=== PATIENT | male | born 1935 | race Caucasian/White ===

== ENCOUNTER 2018-12-25 16:22 | Inpatient (IN) ==
[2018-12-25 19:40] LABS: BASO% 0.6 % (0.0-0.8); EOS# 0.14 X1000 (0.0-0.7); EOS% 0.9 % (0.0-10.0); HEMATOCRIT 37.4 % (42.0-52.0); HEMOGLOBIN 12.5 g/dL (14.0-18.0); IMM GRAN# 0.08 X1000 (0.0-0.04); IMM GRAN% 0.5 % (0.0-0.5); LYMPH# 3.72 X1000 (1.2-3.4); LYMPH% 22.9 % (20.5-51.1); MCH 30.6 PG (27-31); MCHC 33.4 g/dL (33-37); MCV 91.4 FL (81-99); MONO% 7.4 % (1.7-9.3); MPV 10.5 FL (7.4-10.4); NEUT# 11.01 X1000 (1.4-6.5); NEUT% 67.7 % (42.2-75.2); PLT 322 X1000 (130-400); RBC 4.09 XMIL (4.7-6.1); WBC 16.25 X1000 (4.8-10.8)
[2018-12-25 20:00] LABS: INR 1.07; PROTIME 14.5 Seconds (11.0-16.0)
[2018-12-25 20:01] LABS: PTT 30.7 Seconds (22.3-41.8)
[2018-12-25 20:08] LABS: ALBUMIN 4.4 g/dL (3.5-5.0); CALCIUM 10.2 mg/dL (8.8-10.2); CREATININE 1.9 mg/dL (0.7-1.2); POTASSIUM 4.7 mmol/L (3.5-5.1); TOTAL BILIRUBIN 0.4 mg/dL (0.20-1.00); TOTAL PROTEIN 7.2 g/dL (6.3-8.3)
[2018-12-25 21:15] LABS: OCCULT BLOOD 1 POSITIVE (NEGATIVE)
[2018-12-25] MEDS ORDERED: NS 1,000 ML IV ONE (21:21)
[2018-12-25 21:23] LABS: BILIRUBIN URINE NEGATIVE (NEGATIVE); BLOOD URINE NEGATIVE (NEGATIVE); GLUCOSE URINE NEGATIVE (NEGATIVE); KETONE URINE TRACE mg/dL (NEGATIVE); LEUKOCYTES URINE NEGATIVE (NEGATIVE); NITRITE URINE NEGATIVE (NEGATIVE); PROTEIN URINE 1+(30 mg/dL) mg/dL (NEGATIVE); SP GRAVITY URINE 1.015; UROBILINOGEN URINE NORMAL
[2018-12-25 21:24] LABS: CLARITY CLEAR (CLEAR); COLOR YELLOW
[2018-12-25] MEDS ORDERED: SODIUM CHLORIDE 0.9% INJ ONE (21:41)
[2018-12-25] MEDS: PROTONIX IV ONE ×2 (21:41→22:15)
[2018-12-25 22:10] LABS: URINE SOURCE CLEAN CATCH
[2018-12-25 22:12] LABS: URINE BACTERIA NEGATIVE /HFP; URINE CAST NONE SEEN /LPF; URINE CRYSTAL NONE SEEN /HPF; URINE EPITHELIAL CELLS <10 /HPF (<10); URINE RBC <10 /HPF (<10); URINE WBC <10 /HPF (<10); URINE YEAST NONE SEEN /HPF
[2018-12-25 22:13] LABS: URINE SMALL ROUND CELLS TRANSITIONAL PRESENT
--- NOTE | 2018-12-25 22:18 | PROVIDER DOCUMENTATION ---
This chart was entered by Samia Grimes Scribe, acting as scribe for Cb Chavarria MD. HPI-Abdominal Pain/GI Problem - General Chief Complaint: Rectal Bleeding Stated Complaint: BLOOD IN STOOL Time Seen by Provider: 12/25/18 16:26 Source: patient Allergies/Adverse Reactions: Patient Allergies Allergy/AdvReac Type Severity Reaction Status Date / Time No Known Allergies Allergy Verified 12/25/18 16:35 Home Medications: Home Medication List Medication Instructions Recorded Confirmed Last Taken Type Aspirin 325 mg PO 12/25/18 Unknown History Clonidine [Catapres] 0.1 mg PO BID 12/25/18 12/25/18 Unknown History Clopidogrel Bisulfate [Plavix] 75 mg PO 12/25/18 Unknown History Furosemide [Lasix] 12/25/18 Unknown History Linagliptin [Tradjenta] 12/25/18 12/25/18 Unknown History Metformin E.r. [Glucophage Xr] 12/25/18 Unknown History Metoprolol Succinate E.r. [Toprol 100 mg PO DAILY 12/25/18 12/25/18 Unknown History Xl] Nitroglycerin [Nitrostat] 12/25/18 Unknown History Potassium Chloride [Klor-Con M10] 12/25/18 Unknown History ROSUVAstatin [Crestor] 12/25/18 Unknown History Valsartan 12/25/18 12/25/18 Unknown History - History of Present Illness-ABD Nature of Presenting Problems: 83 yowm c/o black stool tuesday and diarrhea today. pt sts took 2 imodiums at 1430. pt sts he is a little lightheaded but had no other complaints. pt has hx of dm, htn, RI and 2 stents. pt last colonoscopy was 2 years ago w/Dr. Payne. Onset/Duration: reports: 4 days ago Timing: reports: gone now Activities at Onset: reports: none Last BM: this afternoon Dark Stools Present?: reports: black Rectal Pain: reports: none Review of Systems - Adult - REVIEW OF SYSTEMS - ADULT Constitutional: reports: no symptoms reported. denies: fever, fatique, night sweats Eyes: reports: no symptoms reported Ears, Nose, Mouth & Throat: reports: no symptoms reported Cardiovascular: reports: no symptoms reported Respiratory: reports: no symptoms reported Gastrointestinal: reports: see HPI, diarrhea, rectal bleeding (black BM tuesday). denies: abdominal pain, hematemesis, nausea Genitourinary: reports: no symptoms reported Musculoskeletal: reports: no symptoms reported Integumentary: reports: no symptoms reported Neurological: reports: see HPI, other (lightheaded minimal). denies: dizziness/vertigo, headache/migraines, seizure, slurred speech Psychiatric: reports: no symptoms reported Endocrine: reports: no symptoms reported Hematologic/Lymphatic: reports: no symptoms reported Allergic/Immunologic: reports: no symptoms reported All Other Systems: Reviewed and Negative Past History - Adult - PAST MEDICAL HISTORY-ADULT Review of Records: reports: Nursing Assessment Review, Medications Reviewed, S ocial history reviewed & non-contributory. Major Childhood Illnesses: reports: denies history Cardiovascular: reports: HTN, RI Respiratory: reports: denies history Gastrointestinal: reports: denies history Obstetrical/Gynecological: reports: denies history Genitourinary: reports: prostate cancer Musculoskeletal: reports: denies history Neurological: reports: denies history Endocrine/Immune: reports: Diabetes Other Conditions: reports: denies history Additional History: prostate cancer - PRIOR SURGERIES/PROCEDURES Surgical/Procedure History: reports: colonoscopy, cholecystectomy, cardiac stent , hernia repair, other - IMMUNIZATION STATUS Childhood Immunizations: See Nurse Assessment Flu Vaccine: See Nurse Assessment - FAMILY HISTORY Family History: reviewed, not pertinent - SOCIAL HISTORY Smoking: non-smoker Substance Use: alcohol Alcohol Use Frequency: occasionally Physical Exam-General - PHYSICAL EXAM-ADULT Initial Vital Signs Reviewed: Yes - CONSTITUTIONAL General Appearance: appears well, alert, no apparent distress - EYES Eyes: PERRL/EOMI, pink conjunctivae - HEAD, EARS, NOSE, MOUTH & THROAT HENMT: normocephalic/atraumatic, moist mucous membranes, normal ENT inspection - NECK Neck: non-tender, full range of motion, supple, normal inspection - RESPIRATORY Respiratory: chest non-tender, lungs clear, normal breath sounds - CARDIOVASCULAR Cardiovascular: normal peripheral pulses, regular rate, rhythm - GASTROINTESTINAL (ABDOMEN) Abdominal Exam: normal bowel sounds, non tender, soft, no organomegaly, no pu lsatile mass. negative: guarding, rigid, rebound, tenderness - GENITOURINARY Rectal Exam: normal exam, normal rectal tone, black stool. negative: decreased tone, hemorrhoids, mass Hemoccult Exam: heme positive stool - LYMPHATIC Lymphatic: no adenopathy - MUSCULOSKELETAL Back Exam: normal inspection, no CVA tenderness, no vertebral tenderness Extremity: normal range of motion, non-tender, normal inspection Peripheral Pulses: radial (R): 2+, radial (L): 2+ - SKIN Integumentary: normal color, normal turgor, warm/dry - NEUROLOGIC Neurologic: grossly normal, no motor/sensory deficits - PSYCHIATRIC Psych/Mental Status: normal mood/affect, normal thought content, normal thought process, oriented x 3 Progress - PLAN OF CARE/RESULTS Progress/Plan/Lab Results: Vital Signs - 8 hr 12/25/18 16:30 12/25/18 19:32 Temperature 97.4 F L 97.5 F L Pulse Rate 85 95 H Respiratory Rate 18 20 Blood Pressure 99/71 118/68 O2 Sat by Pulse Oximetry 99 98 Laboratory Results - last 24 hr 12/25/18 12/25/18 12/25/18 19:29 19:29 19:29 WBC 16.25 H RBC 4.09 L Hgb 12.5 L Hct 37.4 L MCV 91.4 MCH 30.6 MCHC 33.4 RDW Std Deviation 13.0 Plt Count 322 MPV 10.5 H Immature Gran % (Auto) 0.5 Neut % (Auto) 67.7 Lymph % (Auto) 22.9 [place] % (Auto) 7.4 Eos % (Auto) 0.9 Baso % (Auto) 0.6 Immature Gran # (Auto) 0.08 H Neut # (Auto) 11.01 H Lymph # (Auto) 3.72 H [place] # (Auto) 1.20 H Eos # (Auto) 0.14 Baso # (Auto) 0.10 PT 14.5 INR 1.07 PTT (Actin FS) 30.7 Sodium 138 Potassium 4.7 Chloride 105 Carbon Dioxide 22 L Anion Gap 11 BUN 56 H Creatinine 1.9 H Estimated GFR/1.73 m2 34 BUN/Creatinine Ratio 29 Glucose 219 H Calculated Osmolality 298 Calcium 10.2 Total Bilirubin 0.40 AST 17 ALT 22 Alkaline Phosphatase 95 Total Protein 7.2 Albumin 4.4 Globulin 3.0 Albumin/Globulin Ratio 2.0 Orders Category Date Time Status IV Insertion ORDERED Care 12/25/18 19:24 Active NPO Diet 12/25/18 19:24 Active CBC WITH ELECTRONIC DIFF [HEME] Stat Lab 12/25/18 19:29 Completed COMPREHENSIVE METABOLIC PANEL [CHEM] Stat Lab 12/25/18 19:29 Completed OCCULT BLOOD SCREEN STOOL PL Stat Lab 12/25/18 19:00 Uncollected PROTIME WITH INR [COAG] Stat Lab 12/25/18 19:29 Completed PTT [COAG] Stat Lab 12/25/18 19:29 Completed UA NIMS W/REFLEX CULT PL [URINALYSIS] Stat Lab 12/25/18 17:07 Uncollected Result Diagrams: 12/25/18 19:29 12/25/18 19:29 - REASSESSMENT Reassessment #1 Time Reassessed: 21:22 Status: other (ELEVATED WBC BUT NO OBVIOUS SOURCE OF INFECTION PATIENT DENIES SOB OR DYSURIA. H/H STABLE AND FOBT POSITIVE; WILL CALL HOSPITALIST.) Reassessment #2 Time Reassessed: 21:35 Status: other (SPOKE TO DR. SILVA; WILL ADMIT; ALSO SPOKE TO GI WILL START PROTONIX 80MG IV PUSH AND 10MG /HR WILL TRANSFER TO [facility] HOLD PALVIX) - CONSULTS/PCP/HOSPITALIST Notification #1 *Consult/PCP/Hospitalist*: Dr. Silva Time Discussed: 21:34 Consult Disposition: Admit (admit to [facility]) Departure - Departure Date of Disposition Decision: 12/25/18 Time of Disposition Decision: 21:27 DIAGNOSIS: GIB (gastrointestinal bleeding) Disposition: ADMITTED INPATIENT 09 Certified Medical Emergency: Emergent Condition: Stable Referrals and Follow-Ups: Jose Antonio Payne DO [Primary Care Provider] - - Critical Care Note This patient required my direct & personal management of CC.: No Attestation - Physician/ RISA Attestation Patient care was provided by Advanced Practice Provider:: No The physician spent face to face time with patient:: Yes Advanced Practice Provider documentation review:: Supervising physician onsite and consulted in the evaluation and care of this patient. The physician did have a face to face encounter with the patient. This chart was documented by the indicated scribe, (Samia Grimes Scribe) and accurately reflects the services I performed and decisions made by me, Misa Chavarria MD, as attested by the provider's signature.
[2018-12-25] MEDS: PROTONIX 80 MG in NS 80 ML IV SCH (23:55)
[2018-12-26] MEDS ORDERED: SODIUM CHLORIDE 0.9% INJ SCH ×3 (00:30→22:02)
[2018-12-26 00:50] LABS: HEMATOCRIT 32.3 % (42.0-52.0); HEMOGLOBIN 10.6 g/dL (14.0-18.0)
[2018-12-26] MEDS ORDERED: ZOFRAN IV PRN (01:21)
[2018-12-26 01:55] LABS: HEMOGLOBIN A1C 8.1 % (4.8-6.0)
[2018-12-26] MEDS: NS 1,000 ML IV SCH ×2 (02:44→17:30)
[2018-12-26 05:47] LABS: BASO# 0.08 X1000 (0.0-0.2); BASO% 0.7 % (0.0-0.8); EOS# 0.25 X1000 (0.0-0.7); EOS% 2.1 % (0.0-10.0); HEMATOCRIT 31.1 % (42.0-52.0); HEMOGLOBIN 10.4 g/dL (14.0-18.0); IMM GRAN# 0.04 X1000 (0.0-0.04); IMM GRAN% 0.3 % (0.0-0.5); LYMPH# 3.03 X1000 (1.2-3.4); LYMPH% 25.2 % (20.5-51.1); MCH 30.9 PG (27-31); MCHC 33.4 g/dL (33-37); MCV 92.3 FL (81-99); MONO# 0.88 X1000 (0.11-0.59); MONO% 7.3 % (1.7-9.3); MPV 10.6 FL (7.4-10.4); NEUT# 7.75 X1000 (1.4-6.5); NEUT% 64.4 % (42.2-75.2); PLT 250 X1000 (130-400); RBC 3.37 XMIL (4.7-6.1); WBC 12.03 X1000 (4.8-10.8)
[2018-12-26 06:05] LABS: CALCIUM 8.9 mg/dL (8.8-10.2); CREATININE 1.8 mg/dL (0.7-1.2); POTASSIUM 4.5 mmol/L (3.5-5.1)
--- NOTE | 2018-12-26 07:39 | HISTORY AND PHYSICAL ---
CHIEF COMPLAINT: Blood in stool. HISTORY OF PRESENT ILLNESS: This is an 83-year-old male who sees Dr. Jose Antonio Payne outpatient. He has a history of diabetes mellitus and hypertension, prostate cancer and hyperlipidemia. Apparently he started having black stool Tuesday and then diarrhea today. He took some Imodium around 2:30 this afternoon, started having a little bit of lightheadedness so he came into the emergency room. He also has a history of coronary artery disease status post myocardial infarction and 2 stents. He originally went to [place]'s emergency room. He was not having any abdominal pain for the most part, just the blood in his stool. Occult stool was positive so he was sent for admission at [facility] for GI consultation. PAST MEDICAL HISTORY: See HPI. PREVIOUS SURGICAL HISTORY: Cholecystectomy and hernia repair as well as colonoscopy [address] Payne and cardiac stenting. SOCIAL HISTORY: Nonsmoker. Occasional alcohol. No illicit drugs. He is a . His in 2018. Has a son who lives close. ALLERGIES: No known drug allergies. HOME MEDICATIONS: 1. Tylenol Extra Strength every 4-6 hours. 2. Aspirin 325 p.o. daily. 3. Catapres 0.1 mg p.o. b.i.d. 4. Plavix 75 mg daily. 5. Lasix 40 mg daily. 6. Tradjenta 5 mg p.o. daily. 7. Metformin 500 mg p.o. b.i.d. 8. Metoprolol 50 mg p.o. daily. 9. Potassium chloride 10 mEq p.o. daily. 10.Crestor 20 mg p.o. at bedtime. 11.Valsartan 160 mg p.o. b.i.d. REVIEW OF SYSTEMS: Fourteen point review of systems conducted with the patient. Pertinent positives listed above in the HPI. All other systems reviewed and found to be negative. PHYSICAL EXAMINATION: VITAL SIGNS: Temperature 97.9 degrees, pulse 87, respirations 17, blood pressure 133/62, oxygen saturation 99% on room air. GENERAL: 83-year-old male lying in the medical floor bed, alert and oriented x3, in no acute distress. HEENT: Head is atraumatic, normocephalic. Pupils equal, round and reactive to light. Extraocular eye movement intact. Sclerae anicteric. Conjunctivae mildly pale. Oral mucosa is moist. NECK: Supple. No JVD. No thyromegaly. Trachea is midline. No cervical lymphadenopathy. CARDIAC: S1, S2 appreciated. No murmurs, gallops, rubs. LUNGS: Clear to auscultation bilaterally. No rhonchi, wheezes, rales. Symmetric rise and fall of respirations. ABDOMEN: Soft, nondistended, nontender. Bowel sounds present in all 4 quadrants. Normoactive. No pulsatile masses. No organomegaly. EXTREMITIES: No cyanosis, clubbing or edema. 2+ pedal pulses bilaterally. GENITOURINARY: No bladder distention. Patient voids. Otherwise deferred. NEUROLOGICAL: Alert and oriented x3. No focal motor deficits. Otherwise nonfocal examination. LABORATORY DATA: WBC 16.25, hemoglobin 12.5, hematocrit 37.4, platelet count 322,000. Sodium 138, potassium 4.7, chloride 105, carbon dioxide 22, BUN 56, creatinine 1.9, glucose 219. Urine unremarkable. Occult stool positive. ASSESSMENT AND PLAN: 1. GI bleed. We will consult Dr. Garcia. Protonix 80 mg was given and a drip was started. Hold patient NPO except for medications. 2. Diabetes mellitus type 2 with hyperglycemia. Sliding scale insulin with fingerstick blood sugars before meals and at bedtime. 3. Hypertension. Continue home medication. 4. Anemia secondary to #1. We will trend. 5. Chronic kidney disease stage 3. The patient's creatinine is slightly higher than baseline. We will give fluids and recheck. Further recommendations per patient's clinical course. Dictated by ANASTASIYA Garner for Seng Faust MD I have performed a face to face diagnostic evaluation. Labs/Xrays- reviewed. Exam- Chest- clear, CV- regular, .Abd- soft. A/P- GI bleed- Admit, NPO, PPI, Monitor H/H GI consult. Dr. Faust cc: ANASTASIYA Garner MD [facility]
[2018-12-26] MEDS: PROTONIX 80 MG in NS 80 ML IV SCH ×3 (08:13→20:22)
[2018-12-26] MEDS: HUMALOG SUBQ SCH ×4 (11:13→20:22)
[2018-12-26] MEDS: TOPROL XL PO SCH (11:56)
[2018-12-26] MEDS: CATAPRES PO SCH ×3 (11:57→20:23)
[2018-12-26] MEDS: KLOR-CON PO SCH (11:57)
[2018-12-26] MEDS: DIOVAN PO SCH ×2 (12:06→20:21)
--- NOTE | 2018-12-26 12:48 | GASTROENTEROLOGY CONSULTATION ---
DATE: 12/26/2018 REASON FOR CONSULT: GI bleed. HISTORY OF PRESENT ILLNESS: Mr. Bashir is an 83-year-old male who came from [facility] yesterday complaining of dark, tarry stools. The patient has a history of type 2 diabetes, hypertension, prostate cancer, hyperlipidemia, and coronary artery disease with stent placements. The patient was taking Brilinta and a low dose of aspirin, but his extras casting director changed it to Plavix and aspirin 325 mg daily. He had a stent put in last December, when they found that he had 95% blockage. He mentioned that he usually has a bowel movement in the morning, but Tuesday he had BM in the evening, it was black, tarry stools, and later on he started having diarrhea, which was also black tarry and liquid in consistency, and it went on until Tuesday. [facility] [place], and they asked him to go to the ER, so he went to [facility], an occult blood test done at [facility] [place] was positive, and they sent him to [facility] for further evaluation. He has denied any nausea, vomiting, fever, chills, or SOB. PAST MEDICAL HISTORY: Hypertension, type 2 diabetes, hyperlipidemia, coronary artery disease status post stent placement, heart attack, chest pain, prostate cancer. PAST SURGICAL HISTORY: Stent placement, prostate surgery, gallbladder removed, ruptured hernia repair, left rotator cuff shoulder surgery, and surgery on the left groin. ALLERGIES: No known drug allergies. SOCIAL HISTORY: He is a , lives alone with his dog, has 2 kids In the past he used to smoke half a pack of cigarettes daily, now he smokes 1/2 a pack a week. Consumes beer occasionally. Denies any illicit drug. MEDICATIONS: Clonidine 0.1 mg twice a day, Lasix 40 mg daily, Tradjenta 5 mg p.o. daily, metformin 500 mg p.o. twice a day, nitroglycerin 0.4 mg sublingual as needed, potassium chloride 10 mEq p.o. daily, Crestor 20 mg p.o. at bedtime, valsartan 160 mg p.o. twice a day, aspirin 325 mg daily, Plavix 75 mg daily, metoprolol succinate 50 mg p.o. daily, Tylenol 500 mg every 4 to 6 hours p.r.n. REVIEW OF SYSTEMS: As per HPI, otherwise 12-point review of systems is negative. PHYSICAL EXAMINATION: Vital Signs: Temperature 97.9 degrees, pulse 89, respirations 18, blood pressure is 142/60, oxygen saturation 99% on room air. The patient's weight is 246 pounds. BMI is 33.0 kg. General: He is alert and oriented x3. 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 Answers questions appropriately, and in no acute distress. HEENT: Pale conjunctivae. No icterus. PERRL. Neck: Supple. Lungs: Clear to auscultation in the anterior peraza. Cardiovascular: Regular rate and rhythm. Abdomen: Soft, nondistended, nontender. Bowel sounds present in all 4 quadrants. Extremities: No cyanosis, clubbing. +1 pitting edema noted bilaterally. Neurologic: Alert and oriented x3. Nonfocal. Cranial nerves II through XII grossly intact. LABORATORY DATA: WBCs 12.03, RBCs 3.37, hemoglobin is 10.4, hematocrit is 31.1, platelet count is 250,000. Sodium 139, potassium 4.5, chloride 106, carbon dioxide 21, anion gap 12, BUN 55, creatinine 1.8, glucose 180, calcium 8.9. TSH 12.05. Urine culture showed +1 protein. IMPRESSION: 1. Gastrointestinal bleed. 2. Diabetes type 2. 3. Hypertension. 4. Anemia. 5. History of prostate cancer. 6. Coronary artery disease, status post stent placement. PLAN: We plan to do an esophagogastroduodenoscopy tomorrow to find out the cause of his GI Bleed. Patient is currently on Protonix IV fluid 80 mg for his gastrointestinal bleed. His hemoglobin today was 10.4, and hematocrit was 31.1. Performed rectal exam and did not notice any blood, stool was brown in color. He is on clear liquids, NPO after midnight for the procedure. Discussed risks, benefits and alternatives of the procedure, patient acknowledges understanding of the procedure. We will continue to monitor the patient's CBC, BMP, and follow the plan of care per PCP. Further plan of care will be based on the EGD findings. This plan was discussed with Dr. Wagner. Thank you for your consult, and please call us for any further questions or concerns. Dictated by ANASTASIYA Morillo for Jamie Wagner MD Physician Attestation I have seen and examined the patient. I have discussed and reviewed the the note by Annabelle LANGFORD and agree with findings and plan as documented. In brief, Mr. Ravi Bashir is a 83 year old man with with HTN, HLD, CAD s/p KS and stents on DAPT who presented with melena and acute blood loss anemia. Rectal exam normal. On PPI drip. Will transition to PPI IV BID. Holding blood thinners. Normal plts and coags. OPAL on CKD noted. Clear liquid diet. NPO after MN for diagnostic EGD tomorrow. MTDD
[2018-12-26] MEDS: TYLENOL PO PRN ×2 (17:26→22:27)
[2018-12-26] MEDS: CRESTOR PO SCH (20:21)
[2018-12-26] MEDS ORDERED: PROTONIX IV SCH ×3 (21:15→22:02)
[2018-12-27] MEDS: NS 1,000 ML IV SCH ×2 (01:19→14:05)
[2018-12-27] MEDS: HUMALOG SUBQ SCH ×4 (06:17→20:50)
[2018-12-27] MEDS ORDERED: XYLOCAINE-MPF 2% ONE (09:01)
[2018-12-27] MEDS ORDERED: DIPRIVAN 1% ONE (09:01)
[2018-12-27] MEDS ORDERED: ROBINUL ONE (09:01)
[2018-12-27] MEDS ORDERED: EPINEPHRINE SYRINGE ONE (09:10)
--- NOTE | 2018-12-27 09:26 | ENDOSCOPY OPERATIVE NOTE ---
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 PROCEDURE PERFORMED: EGD w/ biopsy EGD w/ control of bleeding MEDICATIONS: Per Anesthesia TOPICAL ANESTHETIC: none CONSENT: The patient understands the risks and benefits of the procedure and understands that these r isks include, but are not limited to: sedation, allergic reaction, infection, perforation and/or bleeding. Alternative means of evaluation and treatment include, among others: physical exam, x-rays, and/or surgical intervention. The patient elects to proceed with this endoscopic procedure. HISORY AND PHYSICAL: 12/27/2018 DESCRIPTION OF PROCEDURE: During intra-op preparation period all mechanical and medical equipment was checked for proper function. Hand hygiene and appropriate measures for infection prevention was taken. After the risks, benefits and alternatives of the procedure were thoroughly explained, Informed consent was verified, confirmed and timeout was successfully executed by the treatment team. The patient was anesthetized with topical anesthesia and the [id number]-x77 ([id number]) endoscope was introduced through the mouth and advanced to the second portion of the duoden um. Retroflexion was performed in the stomach and revealed no abnormalities. The gastroscope was then slowly withdraw n and removed. ESOPHAGUS: The mucosa of the esophagus appeared normal. The z-line was noted at 45cm from the incis ors. The z-line appeared normal. STOMACH: The stomach was normal. A biopsy was performed using cold forceps. Sample sent for histolo gy. DUODENUM: A single non-bleeding ulcer measuring 10mm in size with a pigmented spot was found in the d uodenal bulb. Submucosal injection of 3ml of epinephrine 1:10,000 was injected around the site with good treatment effect. Cautery was applied to the site with monopolar probe. With good treatment effect. SPECIMENS REMOVED: Yes ADVERSE EVENTS: There were no complications. POSTOPERATIVE DIAGNOSIS: ESOPHAGUS: The mucosa of the esophagus appeared normal. The z-line was noted at 45cm from the incis ors. The z-line appeared normal. STOMACH: The stomach was normal. A biopsy was performed using cold forceps. Sample sent for histolo gy. DUODENUM: A single non-bleeding ulcer measuring 10mm in size with a pigmented spot was found in the d uodenal bulb. Submucosal injection of 3ml of epinephrine 1:10,000 was injected around the site with good treatment effect. Cautery was applied to the site with monopolar probe. With good treatment effect. RECOMMENDATIONS: 1. Await biopsy results 2. Transition IV PPO to PO BID and continue for 3 months Advance to diabetic diet as tolerated Trend H/H daily REPEAT EXAM: Jamie Wagner MD eSigned: Jamie Wagner MD 12/27/2018 9:25 AM cc: PATIENT NAME: Ravi Bashir V MR#: [id number]
[2018-12-27] MEDS ORDERED: NITROGLYCERIN SL PRN (10:05)
--- NOTE | 2018-12-27 10:05 | EKG Report ---
Test Performed on : 12/27/2018 09:59:22 AM Test Reason : chest pain Blood Pressure : / mmHG Vent. Rate : 088 BPM Atrial Rate : 088 BPM P-R Int : 204 ms QRS Dur : 142 ms QT Int : 444 ms P-R-T Axes : 038 -43 020 degrees QTc Int : 537 ms Normal sinus rhythm. Left axis deviation Right bundle branch block Moderate voltage criteria for LVH, may be normal variant Cannot rule out Septal infarct , age undetermined Abnormal ECG Confirmed by Florentin Pacheco MD ([id number]) on 12/28/2018 7:43:06 AM
[2018-12-27] MEDS ORDERED: MORPHINE IV ONE (10:08)
[2018-12-27] MEDS ORDERED: NITROGLYCERIN ONE (10:09)
[2018-12-27] MEDS ORDERED: MORPHINE ONE (10:10)
[2018-12-27] MEDS: TOPROL XL PO SCH (11:30)
[2018-12-27] MEDS: KLOR-CON PO SCH (11:30)
[2018-12-27] MEDS: CATAPRES PO SCH ×2 (11:30→20:32)
[2018-12-27] MEDS: DIOVAN PO SCH ×2 (11:31→20:31)
[2018-12-27 11:38] LABS: CALCIUM 8.3 mg/dL (8.8-10.2); CREATININE 1.6 mg/dL (0.7-1.2); POTASSIUM 4.7 mmol/L (3.5-5.1)
--- NOTE | 2018-12-27 12:53 | CONSULTATION ---
DATE OF CONSULTATION: 12/27/2018 IMPRESSION: 1. Episode of chest discomfort following upper GI endoscopy this morning now resolved following nitroglycerin and morphine. Clinical features more suspicious for esophageal spasm following instrumentation of the esophagus, but cannot entirely exclude angina. 2. Atherosclerotic coronary disease. Patient has history of previous angioplasty/stenting of left anterior descending coronary in December of 2017. He also had severe diagonal stenosis at that time which was jailed, and could not be intervened on despite dual wire technique and efforts to pursue intervention of the diagonal through the side of the stent. The patient's chest symptoms at that time characterized as being different from what he experienced today. 3. Currently, admitted with recent melena with upper GI endoscopy today reportedly showing an ulcer which was cauterized. There was no active bleeding visible today. In discussing patient with Gastroenterology, it was felt reasonable to continue dual antiplatelet therapy at this time with aspirin and Plavix. 4. Type 2 diabetes mellitus. 5. Hypertension. 6. Hyperlipidemia. 7. Peripheral vascular disease. RECOMMENDATIONS: 1. Follow up cardiac enzymes. 2. Arrange resting sestamibi study today, and consider Lexiscan sestamibi study tomorrow depending on clinical course. HISTORY: This 83-year-old white male with a past history of atherosclerotic coronary disease as outlined above, hypertension, type 2 diabetes mellitus, and hyperlipidemia who was admitted recently with melena. He has been on dual antiplatelet therapy since his coronary angioplasty/stent procedure last in December of 2017. A few months ago, he was switched from Brilinta to Plavix. He recently started having dark stools consistent with melena. He has had no chest discomfort prior to hospitalization. He was referred to [facility] for evaluation. He was subsequently transferred to [facility] because it was felt he would likely need a gastroenterology consultation. His hematocrit had dropped from 37 to 32 following admission. He underwent upper GI endoscopy this morning which reportedly demonstrated an ulcer which was cauterized. He was moved back to his hospital room, and not long thereafter started experiencing chest pressure with nausea and discomfort. Also, it had a character of what he refers to as reflux. Discomfort is not felt to be like what he had with his previous coronary disease prior to stenting last December. He received nitroglycerin and morphine, and the discomfort resolved. He reports feeling quite well presently. PAST MEDICAL HISTORY: 1. Atherosclerotic coronary disease as outlined above. 2. Recent peptic ulcer disease with GI blood loss. 3. Hypertension. 4. Type 2 diabetes mellitus. 5. Hyperlipidemia. 6. Peripheral vascular disease. PAST SURGICAL HISTORY: Includes hernia repair, unspecified groin surgery, unspecified shoulder surgery, and cataract procedure. Unspecified colon surgery. Cholecystectomy. Unspecified prostate procedure. ALLERGIES: He has no known drug allergies. MEDICATIONS PRIOR TO ADMISSION: As listed. He has been on dual antiplatelet therapy with aspirin and Plavix. SOCIAL HISTORY: He is retired and . He does not smoke or use alcohol. FAMILY HISTORY: Negative for premature coronary disease. REVIEW OF SYSTEMS: Pulmonary: Negative. Gastrointestinal: Noncontributory beyond history of present illness. Constitutional: Noncontributory beyond history of present illness. Remainder of review of systems negative/noncontributory beyond history of present illness with 14 total systems reviewed. PHYSICAL EXAMINATION: General: This is a pleasant older white male in no distress. He actually appears younger than stated age. Vital signs: Blood pressure 113/52 and heart rate 66. HEENT: Extraocular movements intact. Mucous membranes are moist. Neck: Supple without jugular venous distention. No carotid bruits. Chest: Clear to auscultation bilaterally. Cardiac: Exam reveals a regular rate and rhythm without appreciable murmur or gallop. Abdomen: Soft. Bowel sounds are normal. Extremities: Without edema. Neurologic: Reveals him to be alert and fully oriented. Speech is fluent. Moves all 4 extremities equally well. Skin: Warm and dry. Psychiatric: Reveals mood to be appropriate. DIAGNOSTIC: A 12 lead EKG demonstrates normal sinus rhythm and left axis deviation probably due to left anterior fascicular block and right bundle branch block. LABORATORY DATA: Sodium 139, potassium 4.5, chloride 106, carbon dioxide 21. BUN 55, creatinine 1.8 and glucose 180. White blood cell count 12.03 hematocrit 31.1, platelet count 250,000. Troponin less than 0.01. CPK 57. cc: Sachin Foster MD
[2018-12-27 13:43] LABS: BASO# 0.07 X1000 (0.0-0.2); BASO% 0.5 % (0.0-0.8); EOS# 0.07 X1000 (0.0-0.7); EOS% 0.5 % (0.0-10.0); HEMOGLOBIN 10.5 g/dL (14.0-18.0); IMM GRAN# 0.03 X1000 (0.0-0.04); IMM GRAN% 0.2 % (0.0-0.5); LYMPH# 1.86 X1000 (1.2-3.4); LYMPH% 14.4 % (20.5-51.1); MCH 30.7 PG (27-31); MCHC 32.8 g/dL (33-37); MCV 93.6 FL (81-99); MONO# 0.99 X1000 (0.11-0.59); MONO% 7.7 % (1.7-9.3); MPV 10.9 FL (7.4-10.4); NEUT# 9.89 X1000 (1.4-6.5); NEUT% 76.7 % (42.2-75.2); PLT 231 X1000 (130-400); RBC 3.42 XMIL (4.7-6.1); RDW 13.1 % (11.5-14.5); WBC 12.91 X1000 (4.8-10.8)
--- NOTE | 2018-12-27 14:12 | EKG Report ---
Test Performed on : 12/27/2018 1:41:15 PM Test Reason : chest pain Blood Pressure : / mmHG Vent. Rate : 086 BPM Atrial Rate : 086 BPM P-R Int : 188 ms QRS Dur : 138 ms QT Int : 428 ms P-R-T Axes : 057 -41 010 degrees QTc Int : 512 ms Normal sinus rhythm. Left axis deviation Right bundle branch block Minimal voltage criteria for LVH, may be normal variant Septal infarct (cited on or before 05-MAY-2009) Abnormal ECG When compared with ECG of 27-DEC-2018 09:59, (Unconfirmed) Questionable change in initial forces of Septal leads Confirmed by Tara ORNELAS, Florentin Trinidad ([id number]) on 12/28/2018 7:43:49 AM
--- NOTE | 2018-12-27 14:20 | PROGRESS NOTE ---
DATE: 12/27/2018 SUBJECTIVE: The patient reports feeling fine. No more episodes of black stools. I was called by Dr. Diaz from anesthesiology that this patient after the procedure endoscopy, he started having chest pain so immediately we have provided pain medications and also checked troponins. We consulted Cardiology. OBJECTIVE: Vitals: Temperature 98.5 degrees, heart rate 87, respiratory rate 18, blood pressure 131/46, O2 saturation 100% on room air. General Examination: This is an 83-year-old male, lying in bed, in no acute distress. Cardiovascular: S1, S2 heard. No murmurs, gallops, or rubs. Regular rate and rhythm. Respiratory: Clear bilaterally to auscultation. No work of breathing or using accessory muscles. Abdomen: Soft, nontender to palpation. Bowel sounds present. No organomegaly. Extremities: No clubbing, cyanosis, or edema. Peripheral pulses present in both legs. Neurological: The patient alert and oriented x3. Moves 4 extremities. LABORATORY DATA: White cell count 12.91, hemoglobin 10.5, hematocrit 32.0, platelets 231,000. Creatinine 1.6. ASSESSMENT AND PLAN: 1. Gastrointestinal bleeding. Patient underwent endoscopy this morning. They found a single nonbleeding ulcer measuring 1 cm in size in the duodenum that was cauterized. Unfortunately, after the procedure he started complaining of chest pain. 2. Chest pain after endoscopy. The patient has history of diabetes mellitus, hypertension so patient is being transferred to [facility] [place]. We are going to check troponins 3 times, echocardiogram and also Lexiscan with cardiology evaluation. 3. Diabetes mellitus type 2. We will continue with sliding scale insulin and Accu-Chek before meals and also at bedtime. 4. Hypertension. Blood pressure is under control. We will continue with same management. 5. Anemia secondary to blood loss. We will continue to monitor. 6. Chronic kidney disease stage 3. Creatinine around baseline. We will continue to monitor. 7. Disposition: We will monitor this patient closely in the [facility]. cc: Wilian Felipe MD
--- NOTE | 2018-12-27 20:00 | ECHO REPORT ---
ORDER DATE: 12/27/2018 INDICATION: Chest pain. M-MODE MEASUREMENTS: Left ventricle end diastole: 4.9. Left ventricle end systole: 3.4. Posterior wall: 1.3. Interventricular septum: 1.3. Left atrium: 3.8. Aortic diameter: 3.3. SUMMARY OF 2-DIMENSIONAL IMAGIN. The study is somewhat difficult. Left ventricular function is normal. Ejection fraction is 60%. 2. The left atrium is significantly enlarged. 3. The mitral valve shows a minimal degree of regurgitation. 4. Pulsed wave Doppler of mitral inflow shows reversal of the E/A ratio. The ratio is 0.6. 5. Tissue Doppler of septal and lateral mitral annulus averages 9 cm. 6. There is no diastolic dysfunction. 7. The tricuspid valve shows a minimal degree of regurgitation. Pulmonary pressure is probably normal. The inferior vena cava is not dilated. 8. The pulmonic valve appears to be grossly unremarkable. 9. The aortic valve shows some calcification of the cusps without definite stenosis. Maximum gradient is 11 mmHg. Mean gradient is 7 mmHg. 10.There is no pericardial effusion, no mass, and no thrombus. Clinical correlation recommended. cc: MD Wilian Dorsey MD
[2018-12-27] MEDS: CRESTOR PO SCH (20:32)
[2018-12-27] MEDS: PROTONIX PO SCH (20:32)
[2018-12-28] MEDS: NS 1,000 ML IV SCH (04:05)
[2018-12-28 05:55] LABS: BASO# 0.07 X1000 (0.0-0.2); BASO% 0.7 % (0.0-0.8); EOS# 0.39 X1000 (0.0-0.7); EOS% 3.9 % (0.0-10.0); HEMATOCRIT 28.4 % (42.0-52.0); HEMOGLOBIN 9.5 g/dL (14.0-18.0); IMM GRAN# 0.05 X1000 (0.0-0.04); IMM GRAN% 0.5 % (0.0-0.5); LYMPH# 2.44 X1000 (1.2-3.4); LYMPH% 24.5 % (20.5-51.1); MCHC 33.5 g/dL (33-37); MCV 92.8 FL (81-99); MONO# 0.94 X1000 (0.11-0.59); MONO% 9.4 % (1.7-9.3); MPV 10.5 FL (7.4-10.4); NEUT# 6.06 X1000 (1.4-6.5); PLT 236 X1000 (130-400); RBC 3.06 XMIL (4.7-6.1); RDW 13.1 % (11.5-14.5); WBC 9.95 X1000 (4.8-10.8)
[2018-12-28 06:28] LABS: ALBUMIN 3.5 g/dL (3.5-5.0); CALCIUM 8.3 mg/dL (8.8-10.2); CREATININE 1.8 mg/dL (0.7-1.2); PHOSPHORUS 2.9 mg/dL (2.7-4.5); POTASSIUM 4.3 mmol/L (3.5-5.1)
[2018-12-28] MEDS: HUMALOG SUBQ SCH ×2 (06:44→11:55)
[2018-12-28] MEDS ORDERED: LEXISCAN ONE (07:33)
[2018-12-28] MEDS ORDERED: ASPIRIN PO SCH (09:00)
[2018-12-28] MEDS ORDERED: PLAVIX PO SCH (09:00)
[2018-12-28] MEDS: CATAPRES PO SCH (09:39)
[2018-12-28] MEDS: KLOR-CON PO SCH (09:40)
[2018-12-28] MEDS: TOPROL XL PO SCH (09:41)
[2018-12-28] MEDS: DIOVAN PO SCH (09:41)
[2018-12-28] MEDS: PROTONIX PO SCH (09:42)
--- NOTE | 2018-12-28 11:18 | GASTROENTEROLOGY PROGRESS NOTE ---
DATE: 12/28/2018 SUBJECTIVE: Mr. Bashir 83 year old male sitting in the recliner, denied any nausea, vomiting, or chest pain. He said he feels good and is ready to go home. OBJECTIVE: Vital Signs: Temperature 97.8 degrees, pulse is 62, respirations 15, blood pressure 130/52, oxygen saturation 97% on room air. His weight is 248 pounds, BMI 32.6 kg/m2. General: He is alert and oriented x3, and in no acute distress. HEENT: Pale conjunctivae. No icterus. PERRL. Neck: Supple. Lungs: Clear to auscultation in the anterior peraza. Cardiovascular: Regular rate and rhythm. Abdomen: Soft, nondistended, and nontender. Active bowel sounds heard in all 4 quadrants. Extremities: No cyanosis, no clubbing, +1 pitting edema noted bilaterally. Neurological: Alert and oriented x3. LABORATORY DATA: WBCs 9.95, RBC 3.06, hemoglobin is 9.5, hematocrit is 28.4, platelet count is 236,000. Sodium 135, potassium 4.3, chloride 105, carbon dioxide 20, anion gap 10, BUN 32, creatinine is 1.8, glucose 201, calcium 8.3, phosphorus 2.9, creatine kinase 61, troponin less than 0.010, albumin 3.5. Echocardiogram done on 12/27/2018 shows ejection fraction 60%. IMPRESSION: 1. GI bleed. 2. Diabetes type 2. 3. Duodenal Ulcer 4. Anemia. 5. History of prostate cancer. 6. Coronary artery disease S/P stent placement 7. Chest pain. 8. Hypertension. PLAN: An endoscopy was done yesterday and the findings was a small nonbleeding ulcer in the duodenum measuring 10 mm in size with pigmented spot, the ulcer was cauterized. The esophagus and stomach was normal. Biopsy was sent. Awaiting the results of the biopsy. We will continue the current plan of care. Patient is on normal saline at 70 mL/h. He is on Protonix 40 mg p.o. for his GI bleed. He is receiving antiemetics, Zofran 4 mg q.4 hours, for his nausea and vomiting. His diabetes is controlled by insulin Humalog on sliding scale per PCP. We will continue to follow the plan of care per PCP and the sas developer. This plan was discussed with Dr. Garcia. Please call us with any further questions or concerns. Dictated by ANASTASIYA Morillo for Ross Garcia MD cc: Ross Garcia MD I have seen and examined the patient myself. I agree with the above plan of care. The above plan of care was discussed with the patient and all questions were answered. Please call us with any further questions. MANDY
[2018-12-28 11:44] VITALS: BP 127/83
--- NOTE | 2018-12-28 15:08 | Diag Imaging Result Document ---
PROCEDURE NAME: MYOCARDIAL PERF SCAN, STR/REST - 12/27/2018 LEXISCAN SESTAMIBI INTERPRETATION: SUMMARY: The patient was studied using a 2-day protocol, underwent resting sestamibi study on 12/27/2018 and Lexiscan sestamibi study on 12/28/2018. On 12/27/2018, the patient was administered 41.0 mCi of technetium 99-m sestamibi, after which resting cardiac images were obtained. The patient underwent Lexiscan sestamibi study on 12/28/2018, was administered 0.4 mg of Lexiscan intravenously, after which the heart rate went from 62 beats per minute to 88 beats per minute. The blood pressure went from 144/70 to 130/70. With Lexiscan, the patient denied chest discomfort. Following the administration of Lexiscan, the patient was administered 41.1 mCi of technetium-99m sestamibi, after which gated stress cardiac images were obtained. Baseline ECG demonstrated normal sinus rhythm, right bundle branch block and nonspecific ST and T- wave abnormality. With Lexiscan, baseline ST and T-wave abnormality did not change significantly. SPECT images were reconstructed in the short, horizontal, vertical long axis. Review of these images demonstrated mildly diminished activity in the basal and mid inferior wall on stress images, which appears similar on resting images. No significant reversibility is evident. Gated images demonstrate a calculated left ventricular ejection fraction of 70% with symmetrical wall motion/thickening. CONCLUSIONS: 1. Adequate response to Lexiscan. 2. Clinically negative for chest pain. 3. Electrocardiographically, baseline ST and T-wave abnormality did not change significantly following administration of Lexiscan. 4. Lexiscan sestamibi images demonstrate fixed, mildly diminished activity in the basal and mid inferior wall with corresponding preserved regional wall motion most consistent with diaphragm attenuation artifact. There is no convincing scintigraphic evidence of inducible myocardial ischemia. Normal left ventricular systolic function demonstrated. cc: MD Annabelle Rodrigez PA
--- NOTE | 2018-12-30 19:30 | DISCHARGE SUMMARY ---
ADMISSION DATE: 12/26/2018 DISCHARGE DATE: 12/28/2018 DISCHARGE DIAGNOSIS: 1. GI bleeding. 2. Diabetes mellitus type 2. 3. Duodenal ulcers. 4. History of prostate cancer. 5. Coronary artery disease with stents placed. 6. Chest pain. 7. Hypertension. PROCEDURES: 1. Endoscopy. He does show a single non-bleeding ulcer measuring 10 mm in size with a pigmented spot that was found in the duodenal bulb that was cauterized. 2. Echocardiogram Doppler showed atrial fraction 60% with left atrium significantly enlarged. No pericardial effusion. No mass or thrombus. 3. Myocardial perfusion stress and rest. 4. That exam shows adequate response to Lexiscan, clinically negative for chest pain. There is no convincing scintigraphic evidence of inducible myocardial ischemia with normal left ventricular systolic function demonstrated. CONSULTATIONS: 1. Dr. Jamie Wagner from gastroenterology. 2. Dr. Sachin Foster from cardiology. HOSPITAL COURSE: In brief, this patient. He is on 83-year-old male, who presents to the emergency department complaining of black stools and diarrhea. He was taking some Imodium for that. Upon ER evaluation, he was feeling lightheaded although he was hemodynamically stable. He was admitted to the hospital. We have checked that his hemoglobin has been stable. No need for any blood transfusion yet. He was seen by Gastroenterology with procedure as mentioned above. Just right after the procedure, he experienced chest pain and chest discomfort, and that is why we transferred the patient to our pulmonary vascular care unit. We ordered a set of troponins x3 and also echocardiogram and also a Lexiscan. All those returned negative. While he was in the hospital, his hemoglobin remained stable. The patient was discharged in stable condition with followup with GI in 3 to 4 weeks. DISCHARGE PHYSICAL EXAMINATION: Temperature 97.5 degrees, heart rate 62, respiratory 17, blood pressure 127/80. O2 saturation 100% on room air. General: This is a 73-year-old male, lying in bed, in no acute distress. Cardiovascular: S1 S2 heard, no murmurs, gallops, or rubs. Regular rate and rhythm. Respiratory: Exam clear bilaterally to auscultation. No work of breathing. Not using accessory muscles. Abdomen: Soft, nontender to palpation. Bowel sounds present. No organomegaly. Extremities: No clubbing, cyanosis, or edema. Peripheral pulses present in both legs. Neurological: The patient is alert and oriented x3. Moves 4 extremities. DISCHARGE DISPOSITION: 1. Home to self-care. 2. Recent medications: Clonidine 0.1 mg 1 tablet p.o. b.i.d. 3. Carafate 1 g p.o. 3 times per day for a month. 4. Protonix 40 mg 1 tablet p.o. b.i.d. 5. Lasix 40 mg 1 tablet p.o. daily. 6. Tradjenta 5 mg, 1 tablet p.o. daily. 7. Metformin 500 mg 1 tablet p.o. b.i.d. 8. Nitroglycerin as needed for chest pain. 9. Potassium chloride 10 mEq 1 tablet p.o. daily. 10. Crestor 20 mg 1 tablet p.o. at bedtime. 11. Valsartan 160 mg 1 tablet p.o. once daily. 12. Aspirin 325 mg 1 tablet p.o. daily. 13. Plavix 75 mg 1 tablet p.o. daily. 14. Metoprolol 50 mg 1 tablet p.o. daily. 15. Tylenol 500 mg every 4 to 6 hours as needed for pain. 16. Follow up with GI as already scheduled. 17. Time discharging the patient 38 minutes. cc: Wilian Felipe MD
== END 2018-12-28 16:52 | disposition home or self-care (01) | DRG 379 ==
LOC: P.ED 16:22 → SUATTDRO 23:39 → 1N 23:39 → 2N 12-27 13:07
PROVIDERS: ATTEND Internal Medicine
PROC: EN.HEAT (2018-12-27 09:00)